=== PATIENT | female | born 1965 | race Caucasian/White ===

== ENCOUNTER → 2018-06-08 | Day surgery (SDC) | payer OTHER ==
[2018-06-07 13:31] VITALS: BMI 22.6
[~2018-06-08] MED LIST: Lidocaine 1% w/Epinephrine 1:100K 30 ML VIAL ONE
--- NOTE | 2018-06-08 18:30 | CCL ---
DATE OF SERVICE: 06/08/18 PREPROCEDURE DIAGNOSIS: Syncope. PROCEDURES PERFORMED: Insertion of permanent cardiac rehab nurse Medtronic Reveal Linq, model number MDP Linq 11, serial number #[id number]. COMPLICATIONS: None. PROCEDURE SUMMARY: The patient was taken to the procedural area prepped and draped in the usual sterile fashion. Lidoca ine was utilized for local anesthesia. An incision was made at the fourth intercostal space in left pectoral region utilizing a skin puncture tool. The insertable cardiac rehab nurse Linq was inserted thro ugh the puncture site with the Linq insertion tool. Dermabond was then applied to the site in the us ua sterile fashion. Follow up in the office in one week for wound check. Continue followups every 6 months.
== END ==
LOC: CCL 06:29
PROVIDERS: ATTEND Internal Medicine Cardiovascular Disease
PROC: 0JH632Z Insertion of Monitoring Device into Chest Subcutaneous Tissue and Fascia, Percutaneous Approach (ICD-10-PCS; principal; 2018-06-08)
DX: R55 Syncope and collapse (principal); I25.10 Atherosclerotic heart disease of native coronary artery without angina pectoris; I35.1 Nonrheumatic aortic (valve) insufficiency; Z88.0 Allergy status to penicillin; Z79.899 Other long term (current) drug therapy
CPT/HCPCS: 33282; C1764; J2001

== ENCOUNTER 2019-02-20 15:03 | Outpatient (CLI) | payer OTHER ==
--- NOTE | 2019-02-27 11:08 | MMO ---
Bilateral MAMMO Bilat Screen DDI+PABLO. CLINICAL HISTORY: Patient is 53 years old and is seen for screening. The patient has no family history of breast cancer. The patient has no personal history of cancer. VIEWS: The views performed were: bilateral craniocaudal with tomosynthesis and bilateral mediolateral oblique with tomosynthesis. FILMS COMPARED: The present examination has been compared to a prior imaging study performed at [facility] on 03/20/2015. MAMMOGRAM FINDINGS: There are scattered fibroglandular densities. There are stable benign appearing calcifications seen in the right breast. There are no suspicious masses, suspicious calcifications, or new areas of architectural distortion. IMPRESSION: THERE IS NO MAMMOGRAPHIC EVIDENCE OF MALIGNANCY. A ROUTINE FOLLOW-UP MAMMOGRAM IN 1 YEAR IS RECOMMENDED. THE RESULTS OF THIS EXAM WERE SENT TO THE PATIENT. ACR BI-RADS Category 2 - Benign finding MAMMOGRAPHY NOTE: 1. A negative mammogram report should not delay a biopsy if a dominant of clinically suspicious mass is present. 2. Approximately 10% to 15% of breast cancers are not detected by mammography. 3. Adenosis and dense breasts may obscure an underlying neoplasm.
== END 2019-02-20 15:04 | disposition home or self-care (01) ==
LOC: BICMAMMO 15:03
PROVIDERS: ATTEND Obstetrics & Gynecology
DX: Z12.31 Encounter for screening mammogram for malignant neoplasm of breast (principal)
CPT/HCPCS: 77063; 77067

== ENCOUNTER 2020-03-05 07:10 | Emergency (ER) | payer OTHER ==
[2020-03-05] MEDS ORDERED: Ondansetron PF 4 MG/2 ML Vial ONE ×2 (07:14→07:36)
[2020-03-05 07:59] LABS: #Basophils 0.1 thou/uL (0.0-0.2); #Eosinphils 0.1 thou/uL (0.0-0.7); #Lymphocytes 2.3 thou/uL (1.20-3.40); #Monocytes 0.4 thou/uL (0.11-0.59); #Neutrophils 7.6 thou/uL (1.40-6.50); %Basophils 0.6 % (0.0-1.0); %Eosinophils 1.3 % (0.0-10.0); %Lymphocytes 21.7 % (21.0-51.0); %Monocytes 3.6 % (0.0-10.0); %Neutrophils 72.9 % (42.0-75.0); Hemoglobin 14.7 g/dL (12.0-16.0); Mean Corpuscular Hemoglobin 30.8 pg (27.0-31.0); Mean Corpuscular Volume 93.5 fL (78.0-98.0); Mean Platelet Volume 8.6 fL (7.4-10.4); Platelet Count 180 thou/uL (130-400); RBC Distribution Width 11.6 % (11.5-14.5); Red Blood Cell (RBC) Count 4.77 mill/uL (4.20-5.40); White Blood Cell (WBC) Count 10.5 thou/uL (4.8-10.8)
[2020-03-05 08:10] LABS: ALT (SGPT) 7 U/L (8-55); AST (SGOT) 12 U/L (5-34); Alkaline Phosphatase 49 U/L (40-110); Anion Gap 15 mmol/L (10-20); BUN (Urea Nitrogen) 8 mg/dL (9.8-20.1); Bilirubin, Total 0.4 mg/dL (0.2-1.2); CK (CPK) 60 U/L (29-168); Calc. Creatinine Clearance 0 mL/min (70-130); Calcium 9.1 mg/dL (7.8-10.44); Carbon Dioxide 21 mmol/L (22-29); Chloride 109 mmol/L (98-107); Estimated GFR-MDRD 70; Glucose 97 mg/dL (70-105); Potassium 4.2 mmol/L (3.5-5.1); Sodium 141 mmol/L (136-145)
--- NOTE | 2020-03-05 08:27 | RAD ---
XR Chest 1 View Portable HISTORY: Cough, nausea, vomiting, chills, headache COMPARISON: 02/05/2014 FINDINGS: The heart size is normal. A left-sided loop recorder device is seen. The lungs are well exp anded without focal areas of consolidation, pneumothorax or pleural effusions. IMPRESSION: No radiographic evidence of acute cardiopulmonary process.
[2020-03-05 08:54] LABS: Bilirubin Negative (Negative); Blood, Urine Negative (Negative); Glucose, Urine (Dipstick) Negative (Negative); Ketone, Urine Negative (Negative); Leukocyte Trace (Negative); Nitrite Negative (Negative); Protein, Urine (Dipstick) Negative (Neg-Trace); Urobilinogen 0.2 mg/dL (Less than 2)
[2020-03-05 08:56] LABS: Clarity Clear (Clear)
[2020-03-05] MEDS ORDERED: Aspirin Chewable 81 MG TAB ONE (09:11)
[2020-03-05 09:13] LABS: Bacteria/HPF None Seen HPF (None Seen); RBC/HPF None Seen HPF (0-3); Squamous Epithelial 0-3 HPF (0-3); WBC/HPF None Seen HPF (0-3)
[2020-03-05] MEDS ORDERED: Acetaminophen 500 MG TAB ONE (09:53)
[2020-03-06 16:05] LABS: SARS-CoV-2 MS2 Positive; SARS-CoV-2 N Gene Negative; SARS-CoV-2 S Gene Negative; SARS-CoV-2 orf1ab Negative
== END 2020-03-05 10:08 | disposition home or self-care (01) ==
LOC: ERS 07:10 → EEVIPCON 07:10 → ERS 10:08
DX: B34.9 Viral infection, unspecified (principal); R11.2 Nausea with vomiting, unspecified; I25.10 Atherosclerotic heart disease of native coronary artery without angina pectoris; F41.9 Anxiety disorder, unspecified; Z79.899 Other long term (current) drug therapy; Z20.828 Contact with and (suspected) exposure to other viral communicable diseases
CPT/HCPCS: 36415; 71045; 80053; 81003; 81015; 82550; 83605; 83690; 84484; 85025; 87635; 93005; 94760; 96361; 96374; J2405; U0003

== ENCOUNTER 2020-06-05 08:33 | Outpatient (CLI) | payer OTHER ==
--- NOTE | 2020-06-05 10:44 | MRI ---
MR CERVICAL SPINE WITHOUT CONTRAST INDICATION: 54-year-old female with radiculopathy and neck pain TECHNIQUE: Multiplanar multisequence MR images were obtained of the cervical spine without contrast. COMPARISON: MR the cervical spine without contrast dated August 12, 2013 FINDINGS: Posterior fossa: Within normal limits. Bone marrow signal intensity: Normal Spinal alignment: Normal. Craniocervical junction: Normal appearing. Prevertebral and perivertebral soft tissues: Visualized soft tissues appear within normal limits. Vertebral levels: C2-C3: There is mild facet osteoarthrosis. There is a mild broad-based bulge. No appreciable central canal or neural foraminal narrowing is demonstrated. C3-4: There is a mild broad-based bulge with moderate to severe left and moderate right facet joint d egenerative change. There is uncovertebral hypertrophy. There is worsening severe left neural foraminal narrowing due to the facet hypertrophy and uncovertebral hypertrophy. There is stable mild central canal narrowing due to the broad-based disc bulge. C4-5: There is a broad-based disc bulge with uncovertebral hypertrophy and facet joint degenerative change inducing stable mild to moderate right neural foraminal narrowing and mild left neural foraminal narrowing. There is stable mild central canal narrowing due to a broad-based disc bulge at this level. C5-C6: There is a broad-based disc bulge with mild facet joint degenerative change and uncovertebral hypertrophy producing stable moderate right and mild left neural foraminal narrowing. There is stable mild central canal narrowing due to a broad-based disc bulge. C6-C7: There is a broad-based disc bulge with uncovertebral hypertrophy and facet hypertrophy present inducing worsening moderate bilateral neural foraminal narrowing. There is stable mild central canal narrowing due to broad-based disc bulge. C7-T1: No appreciable central canal or neuroforaminal narrowing. IMPRESSION: 1. Worsening vaxx-no-kauuegvr cervical spondylosis. 2. Worsening severe left neural foraminal narrowing at C3-4. 3. Worsening moderate bilateral neural foraminal narrowing at C6-7. 4. Stable [id number] right and mild left neural foraminal narrowing at C4-5. 5. Stable mild central canal narrowing at C3-4 through C6-7
--- NOTE | 2020-06-05 10:49 | MRI ---
MR OF THE THORACIC SPINE WITHOUT CONTRAST INDICATION: Back pain and thoracic spinal stenosis TECHNIQUE: Multiplanar multisequence MR images were obtained of the thoracic spine without contrast. Spine count series was provided. COMPARISON: MR of the thoracic spine dated August 12, 2013 from [facility] FINDINGS: Bone marrow signal intensity: Normal Spinal alignment: Normal Spinal cord: Normal signal intensity and contour. Paravertebral soft tissues: Normal Vertebral levels: T1-T2: No appreciable central canal or neural foraminal narrowing is evident. T2-T3: There is a mild broad-based disc bulge without appreciable central canal or neural foraminal n arrowing. T3-T4: No appreciable central canal or neural foraminal narrowing.. T4-T5: No appreciable central canal or neural foraminal narrowing. T5-T6: No appreciable central canal or neural foraminal narrowing. T6-T7: There is a very small left paracentral disc protrusion that is stable to the prior exam. No ap preciable central canal or neural foraminal narrowing is evident. T7-T8: No appreciable central canal or neural foraminal narrowing. T8-T9: No appreciable central canal or neural foraminal narrowing. T9-T10: No appreciable central canal or neural foraminal narrowing. T10-T11: No appreciable central canal or neural foraminal narrowing. T11-T12: No appreciable central canal or neural foraminal narrowing. T12-L1: No appreciable central canal or neural foraminal narrowing. Additional findings: None. IMPRESSION: 1. Stable mild thoracic spondylosis without appreciable central canal or neural foraminal narrowing.
== END 2020-06-05 08:34 | disposition home or self-care (01) ==
LOC: TBSIIMAG 08:33
PROVIDERS: ATTEND Specialist
DX: M47.22 Other spondylosis with radiculopathy, cervical region (principal); M48.04 Spinal stenosis, thoracic region; M48.02 Spinal stenosis, cervical region
CPT/HCPCS: 72141; 72146

== ENCOUNTER 2022-01-06 10:34 | Outpatient (CLI) | payer BC ==
[2022-01-06 12:38] LABS: #Eosinphils 0.1 10x3/uL (0.0-0.5); #Monocytes 0.4 10x3/uL (0.0-1.1); #Neutrophils 3.1 10x3/uL (1.5-8.4); %Basophils 0.7 % (0.0-2.0); %Eosinophils 2.1 % (0.0-6.0); %Lymphocytes 39.7 % (18.0-47.0); %Neutrophils 51.3 % (40.0-75.0); Hemoglobin 13.5 g/dL (12.0-15.5); Mean Corpuscular HGB CONC 32.3 g/dL (32.0-36.0); Mean Corpuscular Hemoglobin 29.7 pg (27.0-33.0); Mean Corpuscular Volume 91.9 fl (81.6-98.3); Mean Platelet Volume 10.2 fl (7.4-10.4); Platelet Count 227 10x3/uL (150-450); RBC Distribution Width 12.6 % (11.5-14.5); Red Blood Cell (RBC) Count 4.55 10x6/uL (3.90-5.03); White Blood Cell (WBC) Count 6.1 10x3/uL (3.5-10.5)
[2022-01-06 13:09] LABS: ALT (SGPT) 12 U/L (8-55); AST (SGOT) 19 U/L (5-34); Alkaline Phosphatase 66 U/L (40-110); Anion Gap 13 mmol/L (10-20); BUN (Urea Nitrogen) 9 mg/dL (9.8-20.1); Bilirubin, Total 0.6 mg/dL (0.2-1.2); Calc. Creatinine Clearance 0 mL/min (70-130); Calcium 9.4 mg/dL (7.8-10.44); Carbon Dioxide 28 mmol/L (22-29); Cardiac Risk 2.8 (Less than 4.5); Chloride 103 mmol/L (98-107); Cholesterol 186 mg/dl (< 200 Desired); Globulin 2.8 g/dL (2.4-3.5); Glucose 81 mg/dL (70-105); HDL Cholesterol 67 mg/dL (>60 Neg Risk); LDL Cholesterol, Calculated 108 mg/dL; Potassium 5.3 mmol/L (3.5-5.1); Protein, Total 6.8 g/dL (6.0-8.3); Sodium 139 mmol/L (136-145); Triglycerides 56 mg/dL (Less than 150)
[2022-01-06 20:02] LABS: SARS-CoV-2 PCR by NAA Not Detected (NotDetected)
== END 2022-01-06 10:35 | disposition home or self-care (01) ==
LOC: LABBT 10:34
PROVIDERS: ATTEND Internal Medicine Cardiovascular Disease
DX: Z01.812 Encounter for preprocedural laboratory examination (principal); Z20.822 Contact with and (suspected) exposure to COVID-19
CPT/HCPCS: 80053; 80061; 85025; U0003; U0005

== ENCOUNTER 2022-01-11 10:34 | Day surgery (SDC) | payer BC ==
[2022-01-07 12:26] VITALS: BMI 25.0
[2022-01-11] MEDS ORDERED: Lidocaine 1% w/Epinephrine 1:100K 20 ML VIAL ONE (11:36)
== END 2022-01-11 13:33 | disposition home or self-care (01) ==
LOC: SDC 10:34
PROVIDERS: ATTEND Internal Medicine Cardiovascular Disease
PROC: 0JPT32Z Removal of Monitoring Device from Trunk Subcutaneous Tissue and Fascia, Percutaneous Approach (ICD-10-PCS; principal; 2022-01-11)
DX: Z45.09 Encounter for adjustment and management of other cardiac device (principal); R55 Syncope and collapse; I35.1 Nonrheumatic aortic (valve) insufficiency; I25.10 Atherosclerotic heart disease of native coronary artery without angina pectoris; E78.5 Hyperlipidemia, unspecified; Z86.16 Personal history of COVID-19; Z87.891 Personal history of nicotine dependence; Z79.899 Other long term (current) drug therapy; Z88.1 Allergy status to other antibiotic agents
CPT/HCPCS: 33286

== ENCOUNTER 2023-10-23 10:00 | Outpatient (CLI) | payer BC | END 2023-10-23 10:01 | disposition home or self-care (01) | LOC: BICMRI 10:00 | PROVIDERS: ATTEND Family Medicine | DX: R10.32 Left lower quadrant pain (principal); M70.62 Trochanteric bursitis, left hip ==

== ENCOUNTER 2024-08-21 13:28 | Outpatient (CLI) | payer BC | END 2024-08-21 13:29 | disposition home or self-care (01) | LOC: BICMAMMO 13:28 | PROVIDERS: ATTEND Family Medicine | DX: Z12.31 Encounter for screening mammogram for malignant neoplasm of breast (principal) | CPT/HCPCS: 77063; 77067 ==

== ENCOUNTER 2025-04-16 14:05 | Emergency (ER) | payer BC ==
[2025-04-16] MEDS ORDERED: Aspirin Chewable 81 MG TAB ONE (14:29)
[2025-04-16] MEDS ORDERED: Ondansetron PF 4 MG/2 ML Vial ONE (14:29)
[2025-04-16 14:54] LABS: #Basophils 0.06 10x3/uL (0.0-0.2); #Eosinophils Less than 0.03 10x3/uL (0.0-0.7); #Monocytes 0.07 10x3/uL (0.11-0.59); #Neutrophils 14.97 10x3/uL (1.40-6.50); %Basophils 0.4 % (0.0-1.0); %Eosinophils 0.1 % (0.0-10.0); %Lymphocytes 7.6 % (21.0-51.0); %Monocytes 0.4 % (0.0-10.0); %Neutrophils 90.8 % (42.0-75.0); Hematocrit 46.2 % (36.0-47.0); Hemoglobin 14.6 g/dL (12.0-16.0); Mean Corpuscular Hemoglobin 28.0 pg (27.0-31.0); Mean Corpuscular Volume 88.5 fL (78.0-98.0); Platelet Count 357 10x3/uL (130-400); Red Blood Cell (RBC) Count 5.22 mill/uL (4.20-5.40); White Blood Cell (WBC) Count 16.48 10x3/uL (4.8-10.8)
[2025-04-16 15:09] LABS: ALT (SGPT) 8 U/L (Less than 34); AST (SGOT) 21 U/L (11-34); Albumin 4.0 g/dL (3.1-4.5); Alkaline Phosphatase 74 U/L (40-110); Anion Gap 21 mmol/L (10-20); BUN (Urea Nitrogen) 7 mg/dL (9.8-20.1); Bilirubin, Total 0.4 mg/dL (0.3-1.2); Calc. Creatinine Clearance 0 mL/min (70-130); Calcium 9.7 mg/dL (7.8-10.44); Carbon Dioxide 23 mmol/L (22-29); Chloride 100 mmol/L (98-107); Globulin 4.5 g/dL (2.4-3.5); Glucose 151 mg/dL (70-105); Lipase 12 U/L (8-78); Magnesium 2.0 mg/dL (1.6-2.6); Potassium 3.5 mmol/L (3.5-5.1); Sodium 140 mmol/L (136-145)
[2025-04-16] MEDS ORDERED: Metoclopramide HCl 10 MG (2 mL) VIAL ONE (15:25)
[2025-04-16] MEDS ORDERED: Pantoprazole 40 MG VIAL ONE (15:25)
[2025-04-16] MEDS ORDERED: Iopamidol-370 76% 500 ML MDV (1 ML CHARGE) ONE (15:32)
[2025-04-16] MEDS ORDERED: Droperidol 5 MG/2 ML VIAL ONE (16:56)
[2025-04-16] MEDS ORDERED: Lidocaine 10 ML, Aluminum & Magnesium Hydroxide 30 ML SSW SCH (18:00)
== END 2025-04-16 19:18 | disposition home or self-care (01) ==
LOC: ERS 14:05
DX: R07.9 Chest pain, unspecified (principal); R11.2 Nausea with vomiting, unspecified; I25.10 Atherosclerotic heart disease of native coronary artery without angina pectoris
CPT/HCPCS: 36415; 71045; 71275; 74174; 83690; 83735; 83880; 84484; 85025; 93005; 96365; 96375; J1790; J2060; J2270; J2405; J2470; J2765; Q9967